=== PATIENT | female | born 1990 | race Native Hawaiian/Other Pacific Islander ===

== ENCOUNTER 2016-12-27 18:24 | Emergency (ER) | payer OTHER ==
[~2016-12-27] VITALS: Ht 162.6 cm; Wt 106.6 kg
[2016-12-27 18:30] VITALS: BP 135/82; TEMP 98.9
== END 2016-12-27 19:54 | disposition home or self-care (01) ==
LOC: ED 18:24
DX: L03.316 Cellulitis of umbilicus (principal)
CPT/HCPCS: 81025

== ENCOUNTER 2017-10-17 16:56 | Emergency (ER) | payer OTHER ==
[~2017-10-17] VITALS: Ht 162.6 cm; Wt 113.4 kg
[2017-10-17] MEDS ORDERED: PHENTERMINE37.5 MG PO (17:13)
[2017-10-17] MEDS ORDERED: XULANE 150-35 M1 DIS TD (17:14)
[2017-10-17 17:30] VITALS: BP 121/75; TEMP 98.6
== END 2017-10-17 17:40 | disposition home or self-care (01) ==
LOC: ED 16:56
DX: J02.9 Acute pharyngitis, unspecified (principal)
CPT/HCPCS: 99281

== ENCOUNTER 2018-02-18 12:00 | Emergency (ER) | payer OTHER ==
[~2018-02-18] VITALS: Ht 162.6 cm; Wt 108.9 kg
[~2018-02-18 12:00] MED LIST: PHENTERMINE37.5 MG PO; XULANE 150-35 M1 DIS TD
[2018-02-18] MEDS ORDERED: BIRTH CONTROL PATCH TOP (12:17)
[2018-02-18 13:14] LABS: PLATELET COUNT 287 K/uL (152-353)
[2018-02-18 13:21] LABS: POTASSIUM 3.8 mmol/L (3.6-5.2)
[2018-02-18 13:55] VITALS: BP 100/53; TEMP 98.1
== END 2018-02-18 13:55 | disposition home or self-care (01) ==
LOC: ED 12:00
PROVIDERS: Emergency Medicine
DX: M54.9 Dorsalgia, unspecified (principal)
CPT/HCPCS: 36415; 80053; 80307; 81000; 81025; 85027; 96365; 96374; 99284; J1885

== ENCOUNTER 2018-06-02 10:04 | Emergency (ER) | payer OTHER ==
[~2018-06-02] VITALS: Ht 162.6 cm; Wt 99.8 kg
[~2018-06-02 10:04] MED LIST changes: +BIRTH CONTROL PATCH TOP
[2018-06-02 10:10] VITALS: TEMP 97.2
[2018-06-02 12:38] VITALS: BP 122/64
== END 2018-06-02 12:38 | disposition home or self-care (01) ==
LOC: ED 10:04
DX: S30.3XXA Contusion of anus, initial encounter (principal); S30.817A Abrasion of anus, initial encounter; X58.XXXA Exposure to other specified factors, initial encounter
CPT/HCPCS: 96372; 99282; J1885

== ENCOUNTER 2018-12-02 13:09 | Emergency (ER) | payer OTHER ==
[~2018-12-02] VITALS: Ht 162.6 cm; Wt 99.8 kg
[2018-12-02 16:25] VITALS: BP 130/70; TEMP 98
== END 2018-12-02 16:25 | disposition home or self-care (01) ==
LOC: ED 13:09
DX: J40 Bronchitis, not specified as acute or chronic (principal)
CPT/HCPCS: 87502; 87651; 94664; 99283

== ENCOUNTER 2019-08-22 21:33 | Emergency (ER) | payer OTHER ==
[~2019-08-22] VITALS: Ht 162.6 cm; Wt 99.8 kg
[2019-08-22 23:30] VITALS: BP 114/73; TEMP 98.3
== END 2019-08-22 23:30 | disposition home or self-care (01) ==
LOC: ED 21:33
DX: K64.5 Perianal venous thrombosis (principal)
CPT/HCPCS: 96372; 99283; J0696; J1885

== ENCOUNTER 2019-11-30 15:02 | Outpatient (CLI) | payer OTHER | END 2019-11-30 18:00 | disposition home or self-care (01) | LOC: RAD 15:02 | DX: M72.2 Plantar fascial fibromatosis (principal) ==

== ENCOUNTER 2020-01-25 12:48 | Outpatient (CLI) | payer OTHER | END 2020-01-25 19:28 | disposition home or self-care (01) | LOC: US 12:48 | DX: R10.2 Pelvic and perineal pain (principal) ==

== ENCOUNTER 2020-01-27 20:10 | Observation (INO) | payer OTHER ==
[~2020-01-27] VITALS: Ht 162.6 cm; Wt 112.1 kg
[2020-01-27 20:24] VITALS: BP 124/73; TEMP 102.6
[2020-01-27 20:58] LABS: PLATELET COUNT 158 K/uL (152-353)
[2020-01-27 21:14] LABS: POTASSIUM 2.3 mmol/L (3.6-5.2)
[2020-01-27 22:59] VITALS: BP 129/65; TEMP 99.6; Ht 162.6 cm; Wt 112.1 kg
[2020-01-28] VITALS: BP 129/65; TEMP 99.6
--- NOTE | 2020-01-28 02:24 | NUR ---
TEMP 98.8 AT THIS TIME. CHECK ORALLY.
[2020-01-28 03:53] VITALS: BP 115/66; TEMP 99.7
[2020-01-28 05:00] LABS: PLATELET COUNT 178 K/uL (152-353)
[2020-01-28 05:23] LABS: POTASSIUM 3.7 mmol/L (3.6-5.2)
[2020-01-28 08:00] VITALS: BP 133/75; TEMP 98.6
[2020-01-28 12:00] VITALS: BP 117/77; TEMP 98.2
--- NOTE | 2020-01-28 15:32 | NUR ---
PT IV DC'D TIP INTACT NO REDNESS OR SWELLING NOTED. PT TOLERATED WELL. 2X2 APPLIED WITH PRESSURE FOR 1 MINUTE. PT GIVEN DISCHARGE INSTRUCTIONS. PT INSTRUCTED TO COMPLETE TAMIFLU DIRECTED. PT INSTRUCTED ON COUGH MEDICATION AND HOW TO TAKE IT. PT VERBALIZED UNDERSTANDING. PT EDUCATED ABOUT NOT BEING AROUND ELDERLY AND SMALL CHILDRED. THOROUGH HAND WASHING WITH WARM WATER AND SOAP. PT VERBALIZED UNDERSTANDING.
--- NOTE | 2020-01-28 16:45 | NUR ---
1630 PT AMBULATED OUT WITH SPOUSE. NAD NOTED.
== END 2020-01-28 15:30 | disposition home or self-care (01) ==
LOC: ED 20:10 → MED/SURG 21:55
PROVIDERS: Emergency Medicine; ADMIT Family Medicine
DX: J11.1 Influenza due to unidentified influenza virus with other respiratory manifestations (principal); E86.0 Dehydration; E87.6 Hypokalemia; R11.2 Nausea with vomiting, unspecified; N28.9 Disorder of kidney and ureter, unspecified; E87.8 Other disorders of electrolyte and fluid balance, not elsewhere classified
CPT/HCPCS: 80053; 81000; 83605; 83735; 85027; 87502; 87651; 93005; 96360; 96361; 96365; 96366; 96367; 96372; 96375; 99220; 99284; G0378; J1885; J3475; J3490

== ENCOUNTER 2021-08-10 11:21 | Emergency (ER) | payer OTHER ==
[~2021-08-10] VITALS: Ht 162.6 cm; Wt 112.0 kg
[2021-08-10 11:29] VITALS: TEMP 97.3
[2021-08-10 12:18] LABS: PLATELET COUNT 351 K/uL (152-353)
[2021-08-10 13:48] VITALS: BP 128/74
== END 2021-08-10 13:48 | disposition home or self-care (01) ==
LOC: ED 11:21
PROVIDERS: Emergency Medicine Emergency Medical Services
DX: J20.9 Acute bronchitis, unspecified (principal); N39.0 Urinary tract infection, site not specified; Z20.822 Contact with and (suspected) exposure to COVID-19; F17.210 Nicotine dependence, cigarettes, uncomplicated
CPT/HCPCS: 36415; 81000; 81025; 85027; 87502; 87635; 87651; 96360; 96365; 96375; 99284; J0696; J2930; U0003

== ENCOUNTER 2021-09-25 17:57 | Emergency (ER) | payer OTHER ==
[~2021-09-25] VITALS: Ht 162.6 cm; Wt 90.7 kg
[2021-09-25 19:48] VITALS: BP 101/75; TEMP 99.9
== END 2021-09-25 19:48 | disposition home or self-care (01) ==
LOC: ED 17:57
DX: J06.9 Acute upper respiratory infection, unspecified (principal); U07.1 COVID-19; F17.210 Nicotine dependence, cigarettes, uncomplicated
CPT/HCPCS: 87635; 87651; 96372; 99283; J0696; J1100; U0003

== ENCOUNTER 2021-12-18 09:31 | Emergency (ER) | payer OTHER ==
[~2021-12-18] VITALS: Ht 162.6 cm; Wt 90.7 kg
[2021-12-18 11:20] LABS: PLATELET COUNT 337 K/uL (152-353)
[2021-12-18 11:30] LABS: POTASSIUM 3.5 mmol/L (3.6-5.2)
[2021-12-18 13:30] VITALS: BP 131/91; TEMP 98.2
== END 2021-12-18 13:32 | disposition home or self-care (01) ==
LOC: ED 09:31
PROVIDERS: Emergency Medicine
DX: L03.114 Cellulitis of left upper limb (principal)
CPT/HCPCS: 80053; 84550; 85027; 96372; 99283; J1885; J2270

== ENCOUNTER 2022-07-03 12:13 | Emergency (ER) | payer OTHER ==
[~2022-07-03] VITALS: Ht 162.6 cm; Wt 108.0 kg
[2022-07-03 12:17] VITALS: TEMP 98.7
[2022-07-03] MEDS ORDERED: CLINDAMYCIN HY300 MG PO (12:57)
[2022-07-03 13:32] VITALS: BP 132/89
== END 2022-07-03 13:32 | disposition home or self-care (01) ==
LOC: ED 12:13
PROC: 0H98XZZ Drainage of Buttock Skin, External Approach (ICD-10-PCS; principal; 2022-07-03)
DX: L03.116 Cellulitis of left lower limb (principal); L03.317 Cellulitis of buttock
CPT/HCPCS: 87070; 87205; 99283